=== PATIENT | male | born 1995 | race Two or more races ===

== ENCOUNTER 2022-09-19 19:39 | Emergency (ER) | payer OTHER ==
[~2022-09-19] VITALS: Ht 165.1 cm; Wt 95.5 kg
[2022-09-19 19:45] VITALS: BP 146/86
== END 2022-09-20 00:04 | disposition left against medical advice (07) ==
LOC: ER 19:39
DX: M79.662 Pain in left lower leg (principal); M79.661 Pain in right lower leg; Z53.21 Procedure and treatment not carried out due to patient leaving prior to being seen by health care provider
CPT/HCPCS: 73610